=== PATIENT | female | born 2000 ===

== ENCOUNTER 2020-03-11 14:45 | Outpatient (REF) | payer MEDICAID, SELFPAY ==
--- NOTE | 2020-03-11 | PFT_ITS ---
Forced vital capacity is slightly decreased. FEV1 moderately decreased. FOT37-51 and MVV are markedly decreased. Post bronchodilator therapy, no significant changes noted except for slight improvement in MVV. Total lung capacity is normal. Residual volume slightly increased. Diffusion capacity normal. CONCLUSION: Moderately severe obstructive airway disorder. No significant response to bronchodilator therapy. MD RAMU Rosario/VANESSA / [id number]
== END 2020-03-11 14:46 | disposition home or self-care (01) ==
LOC: HO.RESP 14:45
PROVIDERS: PCP Emergency Medicine; Visit Provider Internal Medicine Pulmonary Disease
DX: J45.30 Mild persistent asthma, uncomplicated (principal)
CPT/HCPCS: 94060; 94727; 94729

== ENCOUNTER → 2020-03-24 14:50 | Outpatient (BNVA) | payer MEDICAID, SELFPAY | PROVIDERS: PCP Emergency Medicine; Visit Provider Internal Medicine Pulmonary Disease | DX: J45.40 Moderate persistent asthma, uncomplicated (principal); Z79.899 Other long term (current) drug therapy | CPT/HCPCS: 99213 ==

== ENCOUNTER → 2020-06-18 14:52 | Outpatient (BNVA) | payer MEDICAID, SELFPAY | PROVIDERS: PCP Emergency Medicine; Referring Provider Emergency Medicine; Visit Provider Internal Medicine Pulmonary Disease | DX: J45.50 Severe persistent asthma, uncomplicated (principal); Z91.09 Other allergy status, other than to drugs and biological substances | CPT/HCPCS: 99212 ==

== ENCOUNTER 2020-06-24 10:27 | Outpatient (REF) | payer MEDICAID, SELFPAY ==
[2020-06-24 12:03] LABS: MANUAL DIFF FLAG NO
[2020-06-24 12:14] LABS: Basophils Percent Auto 0.6 % (0-2); Eosinophils Percent Auto 0.6 % (0-4); Hematocrit 36.7 % (37-47); Hemoglobin 11.6 g/dl (12.0-16.0); Imm Gran Abs Auto 0.01 X10*3/uL (0.00-0.03); Imm Gran Pct Auto 0.2 % (0.0-0.4); Lymphocytes Absolute Auto 2.1 X10*3/uL (1.2-4.9); Lymphocytes Percent Auto 41.5 % (20-40); Mean Corpuscular HGB Conc 31.6 g/dl (31.0-35.0); Mean Corpuscular Hemoglobin 27.7 pg (27.0-33.0); Mean Corpuscular Volume 87.6 fL (80-98); Mean Platelet Volume 11.7 fL (9.4-12.3); Monocytes Absolute Auto 0.4 X10*3/uL (0.1-1.2); Monocytes Percent Auto 7.5 % (2-11); Neutrophils Absolute Auto 2.5 X10*3/uL (2.0-8.3); Neutrophils Percent Auto 49.6 % (45-73); Platelet Count 229 X10*3/uL (160-400); Red Blood Count 4.19 X10*6/uL (4.20-5.50); Red Cell Distribution Width 14.2 % (11.0-16.0); White Blood Count 5.1 X10*3/uL (4.8-10.8)
[2020-06-26 03:37] LABS: Immunoglobulin E 25 kU/L (<OR=114)
== END 2020-06-24 10:28 | disposition home or self-care (01) ==
LOC: HO.LAB 10:27
PROVIDERS: PCP Emergency Medicine; Visit Provider Internal Medicine Pulmonary Disease
DX: J45.50 Severe persistent asthma, uncomplicated (principal)
CPT/HCPCS: 36415; 82785; 85025; 86003

== ENCOUNTER → 2020-09-10 12:41 | Outpatient (BNVA) | payer MEDICAID, SELFPAY | PROVIDERS: PCP Emergency Medicine; Visit Provider Internal Medicine Pulmonary Disease | DX: J45.50 Severe persistent asthma, uncomplicated (principal) | CPT/HCPCS: 99212 ==

== ENCOUNTER → 2020-10-21 13:45 | Outpatient (BNVA) | payer MEDICAID, SELFPAY | PROVIDERS: PCP Emergency Medicine; Visit Provider Internal Medicine Pulmonary Disease | DX: J45.50 Severe persistent asthma, uncomplicated (principal); Z91.09 Other allergy status, other than to drugs and biological substances | CPT/HCPCS: 99212 ==

== ENCOUNTER → 2021-02-09 13:57 | Outpatient (BNVA) | payer MEDICAID, SELFPAY | PROVIDERS: PCP Nurse Practitioner; Visit Provider Internal Medicine Pulmonary Disease | DX: J45.50 Severe persistent asthma, uncomplicated (principal); Z91.09 Other allergy status, other than to drugs and biological substances | CPT/HCPCS: 99212 ==

== ENCOUNTER → 2021-10-18 13:19 | Outpatient (BNVA) | payer MEDICAID, SELFPAY | PROVIDERS: PCP Nurse Practitioner; Visit Provider Internal Medicine Pulmonary Disease | DX: J45.50 Severe persistent asthma, uncomplicated (principal) | CPT/HCPCS: 99212 ==

== ENCOUNTER → 2022-06-08 15:21 | Outpatient (BNVA) | payer MEDICAID, SELFPAY | PROVIDERS: PCP Nurse Practitioner; Visit Provider Internal Medicine Pulmonary Disease | DX: J45.50 Severe persistent asthma, uncomplicated (principal); Z79.899 Other long term (current) drug therapy | CPT/HCPCS: 99212 ==

== ENCOUNTER → 2022-10-18 08:37 | Outpatient (BNVA) | payer MEDICAID, SELFPAY | PROVIDERS: PCP Nurse Practitioner; Visit Provider Physician Assistant | DX: K21.9 Gastro-esophageal reflux disease without esophagitis (principal); Z79.899 Other long term (current) drug therapy | CPT/HCPCS: 99202 ==

== ENCOUNTER 2022-12-13 13:08 | Outpatient (AMB) | payer MEDICAID, SELFPAY ==
--- NOTE | 2022-12-13 13:21 | A.OFFVIS_ITS ---
Intake Vital Signs 12/13/22 13:23 Height 5 ft 1 in Weight 94 lb 12.78 oz BMI 17.9 BP 102/88 Pulse 69 Pulse Oximetry (%) 97 Intake Visit Reasons: asthma Intake Note: pt is doing very well on breo and incruse Allergies No Known Allergies [No Known Allergies*] Allergy (Verified 10/18/22 08:46) HPI asthma HPI Details 22-year-old lady, lifetime nonsmoker, followed for underlying severe persistent asthma.? She continues to use Breo, Incruse, and albuterol MDI with good control of her underlying symptoms.? She denies any recent exacerbations.? [facility], LAT[facility] Social History Household Members: Family Alcohol intake: current Alcohol intake frequency: holidays/special occasions only Patient Tobacco Use Status: Never used Tobacco Review of Systems Const Denies daytime sleepiness, Denies excessive sweating, Denies fatigue, Denies fever(s), Denies lethargy, Denies malaise, Denies night sweats, Denies snoring and Denies weight loss Eyes Denies blurry vision and Denies itchy eyes ENT Denies nasal congestion, Denies post nasal drip, Denies sinus pain, Denies sinus pressure and Denies other ( Thrush) Card Denies chest pain, Denies pedal edema, Denies dyspnea, Denies orthopnea and Denies paroxysmal nocturnal dyspnea Resp Denies cough, Denies hemoptysis, Denies excessive phlegm production, Denies dyspnea, Denies snoring and Denies wheezing GI Denies abdominal pain and Denies heartburn Musc Denies myalgias, Denies arthralgias and Denies joint swelling Skin/Breast Denies rash Neuro Denies memory loss and Denies seizure-like activity Psych Denies abnormal sleep pattern, Denies anxiety and Denies memory loss Endo Denies excessive sweating, Denies fatigue and Denies heat intolerance Cain/Lymph Denies easy bruising Aller/Immun Denies itchy eyes, Denies seasonal rhinorrhea and Denies wheezing Physical Exam Vital Signs: Last Vital Signs Pulse 69 12/13/22 13:23 BP 102/88 12/13/22 13:23 Pulse Ox 97 12/13/22 13:23 BMI result Body Mass Index 17.9 Const General: no acute distress and alert Nutritional Appearance: not obese Orientation/consciousness: Other orientation findings ( oriented) HEENT Head: Yes atraumatic Eyes General: appearance normal, both eyes and all related structures Sclerae: sclerae normal EOM: EOMs intact bilaterally Neck Neck: Yes supple Lymphatic: no lymphadenopathy noted Resp Effort & Inspection: normal respiratory effort and no use of accessory muscles Auscultation: clear to auscultation bilaterally Cardio Rate: regular rate Rhythm: regular rhythm Heart sounds: no gallops, no murmurs and no rubs Skin General skin exam: other ( warm) Extrem General: No clubbing, No cyanosis and No edema Assessment & Plan Assessment & Plan (1) Severe persistent asthma: Code(s): J45.50 - Severe persistent asthma, uncomplicated Plan: Patient continues to do well on her current regimen of Breo, Incruse, and albuterol MDI. Continue current regimen. (2) Environmental allergies: Code(s): Z91.09 - Other allergy status, other than to drugs and biological substances Plan: No recent issues with environmental allergies. Coding Level of Care Code Est Pt Level 3 (47315) Diagnoses Severe persistent asthma J45.50 Environmental allergies Z91.09
[2022-12-13 13:23] VITALS: BP 102/88; PULSE 69; O2SAT 97; BMI 17.9
== END 2022-12-13 13:29 | disposition home or self-care (01) ==
PROVIDERS: PCP Nurse Practitioner; Visit Provider Internal Medicine Pulmonary Disease
DX: J45.50 Severe persistent asthma, uncomplicated (principal); Z91.09 Other allergy status, other than to drugs and biological substances
CPT/HCPCS: 99213

== ENCOUNTER → 2022-12-13 13:08 | Outpatient (BNVA) | payer MEDICAID, SELFPAY | PROVIDERS: PCP Nurse Practitioner; Visit Provider Internal Medicine Pulmonary Disease | DX: J45.50 Severe persistent asthma, uncomplicated (principal); Z91.09 Other allergy status, other than to drugs and biological substances | CPT/HCPCS: 99212 ==

== ENCOUNTER 2023-05-02 09:54 | Day surgery (SDC) | payer MEDICAID, SELFPAY ==
--- NOTE | 2023-05-01 10:27 | HO.ANESPROP2 ---
Documented by User: Nayeli Armendariz NP 05/01/23 10:27 HPI - Anesthesia Eval Consult details Narrative: 22yo F for Upper Endoscopy [facility] Active Problems Active Problems: All Active Problems (Updated 10/18/22 @ 09:00 by Barbara Soriano PA-C) Acid reflux (Acute) Environmental allergies (Acute) Severe persistent asthma (Acute) Past Medical History Medical History (Updated 05/02/23 @ 10:35 by Jeanne Trivedi RN) GERD (gastroesophageal reflux disease) Social History Social History Household Members: Family Alcohol intake: current Alcohol intake frequency: holidays/special occasions only Patient Tobacco Use Status: Never used Tobacco Use of substances other than those prescribed or required for medical reasons: No Are you DNR?: No Advance Directives: No Advance Directives Information Provided: Yes Meds Allergies Allergy/AdvReac Type Severity Reaction Status Date / Time No Known Allergies Allergy Verified 10/18/22 08:46 [No Known Allergies*] Assessment and Plan Assessment Anesthesia Assessment: Chart Reviewed Documented by User: Vladislav Heath MD 05/02/23 10:56 [facility] Past Medical History Medical History (Updated 05/02/23 @ 10:35 by Jeanne Trivedi RN) GERD (gastroesophageal reflux disease) Family History Family history of problems with anesthesia: No Surgical History History of Problems with Anesthesia: No Social History Social History Household Members: Family Alcohol intake: current Alcohol intake frequency: holidays/special occasions only Patient Tobacco Use Status: Never used Tobacco Use of substances other than those prescribed or required for medical reasons: No Are you DNR?: No Advance Directives: No Advance Directives Information Provided: Yes Meds Allergies Allergy/AdvReac Type Severity Reaction Status Date / Time No Known Allergies Allergy Verified 05/17/23 08:46 [No Known Allergies*] Exam Airway Mallampati Class: I TM Dist: >3cm Neck ROM: Full Assessment and Plan Assessment Anesthesia Assessment: Anesthesia Plan Discussed Final Anesthetic Review Family History of Problems with Anesthesia: No History of Problems with Anesthesia: No NPO: Yes ASA Class: II Final Preanesthetic Review: No Changes in Pt Med Stat, Meds/Allgs Chart Reviewed, Consent Obtained/Reviewed and Anes Risks/Benef Reviewed Patient Risk: Low Procedure Risk: Low Anesthetic Plan Anesthetic Plan: MAC: Disposition: Standard PACU
[2023-05-02 10:30] VITALS: BMI 17.8
[2023-05-02 10:38] LABS: UPreg QC Valid YES; Urine Pregnancy NEGATIVE (NEGATIVE)
[2023-05-02 11:11] VITALS: BP 126/81; PULSE 71; RESP 16; TEMP 36.6; O2SAT 100
--- NOTE | 2023-05-02 11:26 | MHC.SHP ---
Pre-Procedural Eval Section A Date of Service: 05/02/23 Section B Chief Complaint: Gastro-esophageal reflux disease without esophagit Relevant Family History (Specify if Yes): No Relevant Social History: None Present Medications: see Short Stay Collaborative assessment Medical History: Significant History (asthma, GERD) History of Previous Operations: No relevant previous surgery Allergies: Allergies Allergy/AdvReac Type Severity Reaction Status Date / Time No Known Allergies Allergy Verified 10/18/22 08:46 [No Known Allergies*] Review of Systems Sugical H&P ROS: Negative: Constitution, Cardiovascular, Respiratory, Neurological, Psychiatric, Hem-Onc, Allergic/Immunologic, Gastrointestinal, Genitourinary, Musculoskeletal, Integumentary, Endocrine and Eyes/Ears/Nose/Throat Exam Surgical H&P Exam: Normal: HEENT, Normal: Heart, Normal: Lungs, Normal: Extremities, Normal: Abdomen, Normal: Skin and Normal: Neurological Plan Diagnosis/Plan: Unchanged I have reviewed the history and physical and performed a pertinent physical examination on my patient. No changes have occurred unless specified. Time Spent With Patient Time: Total time managing care of this patient today ____ minutes.
--- NOTE | 2023-05-02 11:27 | W.PM.OPN ---
Operative Note Operative Note Date of Service: 05/02/23 Narrative: Procedure Description: EGD Indication: GERD Anesthesia: MAC FLEXIBLE TRANSORAL UPPER GASTROINTESTINAL ENDOSCOPY UPPER ENDOSCOPY Consent: Indications for the procedure and potential complications of bleeding, perforation, reaction to medications and missed diagnosis were discussed with the patient and informed consent was obtained. Instrument: Olympus GIF H 190 J mid size upper endoscope Monitoring: Vital signs and clinical assessment, continuous EKG monitoring, Pulse oximetry, Carbon Dioxide monitoring and blood pressure monitoring were done throughout the procedure. Procedure: The patient was placed in the left lateral decubitis position and pre-procedure medications were administered and a bite block was placed. The endoscope was inserted into the mouth and advanced under direct vision to the third part of duodenum. A careful inspection was made as the upper endoscope was withdrawn including a retroflexed examination of the proximal stomach; Findings and interventions are described below. Findings: Larynx:mild erythema larynx Esophagus: GE junction at 35 cm, diaphragm hiatus at 35 cm, lax LES, random esophageal bx taken Stomach:Normal mucosa. Biopsies were obtained to r/o h pylori. Grade 2 flap valve on retroflexed examination of the cardia. Duodenum: Normal bulb and descending duodenum, Intervention: Biopsies as noted above Impression/Findings: lax LES mild laryngitis PLAN: cont with PPi as doing if h pylori pos then treat
[2023-05-02 12:04] VITALS: BP 129/76; PULSE 93; RESP 16; TEMP 36.8; O2SAT 100
[2023-05-02 12:21] VITALS: BP 130/81; PULSE 91; RESP 17; TEMP 36.7; O2SAT 100
== END 2023-05-02 13:20 | disposition home or self-care (01) ==
PROVIDERS: Nurse Practitioner; Visit Provider Internal Medicine Gastroenterology
PROC: 0DJ08ZZ Inspection of Upper Intestinal Tract, Via Natural or Artificial Opening Endoscopic (ICD-10-PCS; CPT 43235; principal; 2023-05-02 11:40)
DX: K22.4 Dyskinesia of esophagus (principal); J04.0 Acute laryngitis; K21.9 Gastro-esophageal reflux disease without esophagitis; Z79.899 Other long term (current) drug therapy
CPT/HCPCS: 43239; 81025; 88305; 88342; J2704

== ENCOUNTER → 2023-05-02 09:54 | Outpatient (BNV) | payer MEDICAID, SELFPAY | PROVIDERS: Visit Provider Internal Medicine Gastroenterology | DX: K21.9 Gastro-esophageal reflux disease without esophagitis (principal); J04.0 Acute laryngitis | CPT/HCPCS: 43239 ==

== ENCOUNTER 2023-06-06 12:50 | Outpatient (AMB) | payer MEDICAID, SELFPAY ==
--- NOTE | 2023-06-06 13:32 | MHC.OFFVIS ---
Intake Vital Signs 06/06/23 13:33 Height 5 ft 1 in Weight 93 lb BMI 17.6 BP 119/54 L Blood Pressure Location Lt brachial Position Sitting Pulse 73 Intake Visit Reasons: s/p egd Intake Note: Follow up for EGD results. Patient denies any GI issues. Liquor Commissioner Required: No Accompanied by: Self / Same As Patient Allergies No Known Allergies [No Known Allergies*] Allergy (Verified 06/06/23 13:32) Medication List - Last Reconciled 06/06/23 by Barbara Soriano PA-C albuterol sulfate 90 mcg/actuation 2 puffs inhalation Q4-6H PRN 30 days fluticasone furoate-vilanterol 200-25 mcg/dose (Breo Ellipta) 1 ea inhalation DAILY omeprazole 40 mg (2 x 20 mg) PO DAILY umeclidinium 62.5 mcg/actuation (Incruse Ellipta) 1 inh inhalation DAILY HPI HPI Comments History of Present Illness Details A 22 y/o female f/u after EGD for reflux-she says she tolerated procedure well she is taking omeprazole daily with good response She has a good appetite Reviewed procedure report, pathology as well as recommendations Opportunity for questions answered to her satisfaction No other GI or general complaints-asthma has been well controlled No nausea, vomiting, hematemesis, hematochezia fever chills PFSH Medical History GERD (gastroesophageal reflux disease) Surgical History History of esophagogastroduodenoscopy (EGD) Social History Household Members: Family Alcohol intake: current Alcohol intake frequency: holidays/special occasions only Patient Tobacco Use Status: Never used Tobacco Review of Systems Const Details: All systems reviewed and are negative Physical Exam Vital Signs: Last Vital Signs Pulse 73 06/06/23 13:33 BP 119/54 L 06/06/23 13:33 BMI result Body Mass Index 17.6 Const General: cooperative, healthy appearing, comfortable and no acute distress Limitations: no limitations Resp Effort & Inspection: normal respiratory effort and able to speak in complete sentences Skin General skin exam: no rashes or lesions noted Extrem General: Yes full ROM Psych Appearance: grossly normal and well kempt Mental Status: mental status grossly normal Speech and movement: Normal speech and movement present and Clear speech present Affect: normal affect Attitude: cooperative Thought process: Normal thought process present Thought content: Normal thought content present Insight: Good insight present (Psych) Judgement: Good judgement present (Psych) Results Reviewed Results Reviewed: Findings: Larynx:mild erythema larynx Esophagus: GE junction at 35 cm, diaphragm hiatus at 35 cm, lax LES, random esophageal bx taken Stomach:Normal mucosa. Biopsies were obtained to r/o h pylori. Grade 2 flap valve on retroflexed examination of the cardia. Duodenum: Normal bulb and descending duodenum, Intervention: Biopsies as noted above Impression/Findings: lax LES mild laryngitis PLAN: cont with PPi as doing if h pylori pos then treat Name: Leslye Oglesby Age/Sex: 22/F Attending: Karen Bustos MD : 2000 Submitted by: Karen Bustos MD Copies to: [facility] MR #: [id number] Status: [facility] Collected: 05/02/23 Location: [facility] Received: 05/02/23 Diagnosis A. Stomach, biopsy: Oxyntic mucosa within normal limits; no Helicobacter organisms seen. B. Esophagus, random, biopsy: Squamous epithelium within normal limits; no inflammation seen. Clinical History Pre-Op Dx: Screening Post-Op Dx: LES mild erythema larynx Microscopic Description A, B. Microscopic sections reviewed. Immunostain for H. pylori is non-reactive (A). Material Received A. Stomach B. Random esophagus Gross Description Received in 2 parts. Part A: Received in formalin labeled ?stomach? are 2 ogden irregular tissue fragments each measuring 0.3 cm, submitted in toto in a cassette labeled A. Part B: Received in formalin labeled ?random esophagus? are 3 pale, dunaway-white irregular tissue fragments ranging from 0.15-0.25 cm, submitted in toto a cassette labeled B. CEDS Special studies ordered and performed: immunostain for H. pylori on A Copies To Karen Bustos MD [address] [place] [address] [place] [place], [place] [id number] [facility] [address] [place], [place] [id number] Patient: Leslye Oglesby Age/Sex: 22/F MR#: [id number] Page 1 of 2 Assessment & Plan Assessment & Plan (1) Acid reflux: Comment: Well controlled with PPI Asthma well controlled at this time Code(s): K21.9 - Gastro-esophageal reflux disease without esophagitis Plan: Continue PPI Plan Continue PPI See back in couple months for for progress If all well may follow-up with PCP Medications: Refilled omeprazole 40 mg (2 x 20 mg) PO DAILY 60 caps 5RF Patient Instructions: A very pleasant 22-year-old female acid reflux asthma, follows up after recent EGD-she tolerated well She will continue PPI prescribed. Reviewed reflux precautions she will continue to avoid culprits We will see her back in a few months for further assessment a follows well she may follow back with her PCP. Appreciate the opportunity assist in care this very pleasant young woman Coding Level of Care Code Est Pt Level 3 (46227) Diagnoses Acid reflux K21.9 Time Spent (min) 25
[2023-06-06 13:33] VITALS: BP 119/54; PULSE 73; BMI 17.6
== END 2023-06-06 14:34 | disposition home or self-care (01) ==
PROVIDERS: PCP Nurse Practitioner; Visit Provider Physician Assistant
DX: K21.9 Gastro-esophageal reflux disease without esophagitis (principal)
CPT/HCPCS: 99213

== ENCOUNTER → 2023-06-06 12:50 | Outpatient (BNVA) | payer MEDICAID, SELFPAY | PROVIDERS: PCP Nurse Practitioner; Visit Provider Physician Assistant | DX: K21.9 Gastro-esophageal reflux disease without esophagitis (principal) | CPT/HCPCS: 99212 ==

== ENCOUNTER 2023-08-30 14:26 | Outpatient (AMB) | payer MEDICAID, SELFPAY ==
--- NOTE | 2023-08-30 14:30 | MHC.OFFVIS ---
Intake Vital Signs 08/30/23 14:34 Height 5 ft 1 in Weight 90 lb 6.232 oz BMI 17.1 BP 106/63 Blood Pressure Location Lt brachial Position Sitting Pulse 77 Intake Visit Reasons: 8 week f/u Intake Note: Leslye presents in the office as a 8 week follow up. CC: She states that she is having pains in her chest and she is not sure if it is asthma related. 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 Allergies No Known Allergies [No Known Allergies*] Allergy (Verified 08/30/23 14:34) Medication List - Last Reconciled 08/30/23 by Barbara Soriano PA-C albuterol sulfate 90 mcg/actuation 2 puffs inhalation Q4-6H PRN 30 days fluticasone furoate-vilanterol 200-25 mcg/dose (Breo Ellipta) 1 ea inhalation DAILY omeprazole 40 mg (2 x 20 mg) PO DAILY umeclidinium 62.5 mcg/actuation (Incruse Ellipta) 1 inh inhalation DAILY HPI HPI Comments History of Present Illness Details A 22 y/o female with GERD- f/u weight loss- Acid very well controlled- She skips meals-she is losing her job- where she typically eats -she does not eat much. Asthma - well controlled- follows with Dr. Chand She stays up late- sleeps late- She lives with her 20 y/o brother- her mom - father is estranged- No N/V/ D- SOB PFSH Medical History GERD (gastroesophageal reflux disease) Surgical History History of esophagogastroduodenoscopy (EGD) Social History Household Members: Family Alcohol intake: current Alcohol intake frequency: holidays/special occasions only Patient Tobacco Use Status: Never used Tobacco Review of Systems Const All systems reviewed & are unremarkable except as noted in HPI and below Card Denies chest pain Psych Reports anxiety Physical Exam Vital Signs: Last Vital Signs Pulse 77 08/30/23 14:34 BP 106/63 08/30/23 14:34 BMI result Body Mass Index 17.1 Const General: cooperative, comfortable and no acute distress Nutritional Appearance: thin Orientation/consciousness: patient oriented x3 Limitations: no limitations Eyes Sclerae: sclerae normal Resp Effort & Inspection: normal respiratory effort and able to speak in complete sentences Auscultation: clear to auscultation bilaterally Cardio Rate: regular rate Rhythm: regular rhythm Heart sounds: S1 normal heart sound present and S2 normal heart sound present Neuro General: patient oriented x3 Psych Appearance: grossly normal and well kempt Mental Status: mental status grossly normal Speech and movement: Normal speech and movement present and Clear speech present Affect: normal affect Attitude: cooperative Thought process: Normal thought process present Thought content: Normal thought content present Insight: Good insight present (Psych) Judgement: Good judgement present (Psych) Results Reviewed Results Reviewed: me: Leslye Oglesby Age/Sex: 22/F Attending: Karen Bustos MD : 2000 Submitted by: Karen Bustos MD Copies to: [facility] MR #: [id number] Status: [facility] Collected: 05/02/23 Location: [facility] Received: 05/02/23 Diagnosis A. Stomach, biopsy: Oxyntic mucosa within normal limits; no Helicobacter organisms seen. B. Esophagus, random, biopsy: Squamous epithelium within normal limits; no inflammation seen. Clinical History Pre-Op Dx: Screening Post-Op Dx: LES mild erythema larynx Microscopic Description A, B. Microscopic sections reviewed. Immunostain for H. pylori is non-reactive (A). Material Received A. Stomach B. Random esophagus lax LES mild laryngitis PLAN: cont with PPi as doing if h pylori pos then treat Assessment & Plan Assessment & Plan (1) Acid reflux: Comment: Well controlled with PPI Asthma well controlled at this time Code(s): K21.9 - Gastro-esophageal reflux disease without esophagitis (2) Weight loss: Comment: Concern re financial-social Code(s): R63.4 - Abnormal weight loss Plan: Of will bring her back for follow-up in weight monitoring Plan Lab Monitor weight Orders: Orders Comprehensive Met. Panel 08/30/23 K58.9 - Irritable bowel syndrome without diarrhea Vitamin B12 and Folate 08/30/23 D64.9 - Anemia, unspecified Transglutaminase IgA 08/30/23 R19.7 - Diarrhea, unspecified Thyroid Stimulating Hormone 08/30/23 R19.8 - Other specified symptoms and signs involving the digestive system and abdomen Vitamin D 25-OH (D2 and D3) 08/30/23 K21.9 - Gastro-esophageal reflux disease without esophagitis, R63.4 - Abnormal weight loss Hemoglobin A1c 08/30/23 K21.9 - Gastro-esophageal reflux disease without esophagitis, R63.4 - Abnormal weight loss Complete Blood Count Auto Diff 08/30/23 K21.9 - Gastro-esophageal reflux disease without esophagitis, R63.4 - Abnormal weight loss Endomysial IgA rflx Titer 08/30/23 K21.9 - Gastro-esophageal reflux disease without esophagitis, R63.4 - Abnormal weight loss Patient Instructions: Very pleasant then 22-year-old female-with weight loss, well-controlled acid reflux Weight loss likely due to lack of calories-will continue to monitor will have labs as well for evaluation Discussion in regard to social/financial she is sure all is okay Will continue to monitor as well Encouraged to call with any questions or concerns Coding Level of Care Code Est Pt Level 3 (11584) Diagnoses Acid reflux K21.9 Weight loss R63.4 Time Spent (min) 30
[2023-08-30 14:34] VITALS: BP 106/63; PULSE 77; BMI 17.1
== END 2023-08-30 14:54 | disposition home or self-care (01) ==
PROVIDERS: PCP Nurse Practitioner; Visit Provider Physician Assistant
DX: K21.9 Gastro-esophageal reflux disease without esophagitis (principal); R63.4 Abnormal weight loss
CPT/HCPCS: 99213

== ENCOUNTER → 2023-08-30 14:26 | Outpatient (BNVA) | payer MEDICAID, SELFPAY | PROVIDERS: PCP Nurse Practitioner; Visit Provider Physician Assistant | DX: K21.9 Gastro-esophageal reflux disease without esophagitis (principal); R63.4 Abnormal weight loss | CPT/HCPCS: 99212 ==

== ENCOUNTER 2023-12-07 16:27 | Outpatient (REF) | payer MEDICAID, SELFPAY ==
[2023-12-07 16:40] LABS: MANUAL DIFF FLAG NO
[2023-12-07 17:53] LABS: Basophils Percent Auto 0.6 % (0-2); Eosinophils Percent Auto 0.2 % (0-4); Hematocrit 32.5 % (37.0-47.0); Hemoglobin 9.8 g/dl (12.0-16.0); Imm Gran Abs Auto 0.01 X10*3/uL (0.00-0.03); Imm Gran Pct Auto 0.2 % (0.0-0.4); Lymphocytes Absolute Auto 1.7 X10*3/uL (1.2-4.9); Mean Corpuscular HGB Conc 30.2 g/dl (31.0-35.0); Mean Corpuscular Volume 76.3 fL (80.0-98.0); Mean Platelet Volume 11.7 fL (9.4-12.3); Monocytes Absolute Auto 0.5 X10*3/uL (0.1-1.2); Neutrophils Absolute Auto 4.2 x10*3/uL (2.0-8.3); Platelet Count 316 X10*3/uL (160-400); Red Blood Count 4.26 X10*6/uL (4.20-5.50); Red Cell Distribution Width 17.6 % (11.0-16.0); White Blood Count 6.4 X10*3/uL (4.8-10.8)
[2023-12-07 18:18] LABS: Alanine Aminotransferase 9 U/L (0-31); Albumin Level 4.8 g/dL (3.5-5.0); Alkaline Phosphatase 99 U/L (39-117); Anion Gap 13 (12-20); Aspartate Amino Transferase 20 U/L (5-31); Bilirubin Total 0.4 mg/dL (0.0-1.0); Blood Urea Nitrogen 9 mg/dL (9-16); Calcium 9.3 mg/dL (8.4-10.2); Carbon Dioxide 25 mmol/L (22-29); Chloride 106 mmol/L (96-108); Estimated Glomerular Filt Rate > 60; Glucose Random 92 mg/dL (60-115); Potassium 3.7 mmol/L (3.3-5.1); Sodium 140 mmol/L (135-145); Total Protein 7.8 g/dL (6.5-8.0)
[2023-12-07 18:34] LABS: Thyroid Stimulating Hormone 0.43 uIU/mL (0.32-4.0)
[2023-12-07 18:42] LABS: Folate 8.9 ng/mL (> or = 4.0); Vitamin B12 423 pg/mL (200-900)
[2023-12-08 03:05] LABS: Estimated Average Glucose 97 mg/dL
[2023-12-10 23:08] LABS: Transglutaminase IgA <1.0 U/mL
[2023-12-11 12:39] LABS: Vitamin D 25-OH, D2 <4 ng/mL; Vitamin D 25-OH, D3 11 ng/mL; Vitamin D 25-OH, Total 11 ng/mL (30-100)
[2023-12-18 12:38] LABS: Endomysial IgA Antibody Negative (Negative)
== END 2023-12-07 16:28 | disposition home or self-care (01) ==
LOC: HO.LAB 16:27
PROVIDERS: Visit Provider Physician Assistant
DX: K21.9 Gastro-esophageal reflux disease without esophagitis (principal); R63.4 Abnormal weight loss; D64.9 Anemia, unspecified; R19.8 Other specified symptoms and signs involving the digestive system and abdomen; K58.0 Irritable bowel syndrome with diarrhea
CPT/HCPCS: 36415; 80053; 82306; 82607; 82746; 83036; 84443; 85025; 86231; 86364

== ENCOUNTER 2024-04-30 10:54 | Outpatient (AMB) | payer MEDICAID, SELFPAY ==
[2024-04-30 10:57] VITALS: BP 119/62; PULSE 99; O2SAT 100; BMI 18.7
--- NOTE | 2024-04-30 10:57 | MHC.OFFVIS ---
Vital Signs 04/30/24 10:57 Height 5 ft 1 in Weight 99 lb BMI 18.7 BP 119/62 Blood Pressure Location Rt brachial Position Sitting Pulse 99 Pulse Source Doppler Pulse Oximetry (%) 100 Oxygen Delivery Method Room Air Intake Visit Reasons: Asthma Allergies No Known Allergies [No Known Allergies*] Allergy (Verified 04/30/24 10:59) HPI HPI Asthma: Details: 23-year-old lady, lifetime nonsmoker, followed for underlying severe persistent asthma.? She continues to use Breo, Incruse, and albuterol MDI with good control of her underlying symptoms.? She denies any recent exacerbations.? [facility] Medical History GERD (gastroesophageal reflux disease) Surgical History History of esophagogastroduodenoscopy (EGD) Social History Household Members: Family Alcohol intake: current Alcohol intake frequency: holidays/special occasions only Patient Tobacco Use Status: Never used Tobacco Review of Systems Const Denies daytime sleepiness, Denies excessive sweating, Denies fatigue, Denies fever(s), Denies lethargy, Denies malaise, Denies night sweats, Denies snoring and Denies weight loss Eyes Denies blurry vision and Denies itchy eyes ENT Denies nasal congestion, Denies post nasal drip, Denies sinus pain, Denies sinus pressure and Denies other ( Thrush) Card Denies chest pain, Denies pedal edema, Denies dyspnea, Denies orthopnea and Denies paroxysmal nocturnal dyspnea Resp Denies cough, Denies hemoptysis, Denies excessive phlegm production, Denies dyspnea, Denies snoring and Denies wheezing GI Denies abdominal pain and Denies heartburn Musc Denies myalgias, Denies arthralgias and Denies joint swelling Skin/Breast Denies rash Neuro Denies memory loss and Denies seizure-like activity Psych Denies abnormal sleep pattern, Denies anxiety and Denies memory loss Endo Denies excessive sweating, Denies fatigue and Denies heat intolerance Cain/Lymph Denies easy bruising Aller/Immun Denies itchy eyes, Denies seasonal rhinorrhea and Denies wheezing Physical Exam Vital Signs: Last Vital Signs Pulse 99 04/30/24 10:57 BP 119/62 04/30/24 10:57 Pulse Ox 100 04/30/24 10:57 Oxygen Delivery Method Room Air 04/30/24 10:57 BMI result Body Mass Index 18.7 Const General: no acute distress and alert Nutritional Appearance: not obese Orientation/consciousness: Other orientation findings ( oriented) HEENT Head: Yes atraumatic Eyes General: appearance normal, both eyes and all related structures Sclerae: sclerae normal EOM: EOMs intact bilaterally Neck Neck: Yes supple Lymphatic: no lymphadenopathy noted Resp Effort & Inspection: normal respiratory effort and no use of accessory muscles Auscultation: clear to auscultation bilaterally Cardio Rate: regular rate Rhythm: regular rhythm Heart sounds: no gallops, no murmurs and no rubs Skin General skin exam: other ( warm) Extrem General: No clubbing, No cyanosis and No edema Assessment & Plan Assessment & Plan (1) Severe persistent asthma: Code(s): J45.50 - Severe persistent asthma, uncomplicated Category: Medical Plan: Well controlled on current regimen of Breo, Incruse, and albuterol MDI. Continue current regimen. Coding Level of Care Code Est Pt Level 3 (99071) Diagnoses Severe persistent asthma J45.50
== END 2024-04-30 11:06 | disposition home or self-care (01) ==
PROVIDERS: PCP Registered Nurse; Visit Provider Internal Medicine Pulmonary Disease
DX: J45.50 Severe persistent asthma, uncomplicated (principal)
CPT/HCPCS: 99213

== ENCOUNTER → 2024-04-30 10:54 | Outpatient (BNVA) | payer MEDICAID, SELFPAY | PROVIDERS: PCP Registered Nurse; Visit Provider Internal Medicine Pulmonary Disease | DX: J45.50 Severe persistent asthma, uncomplicated (principal) | CPT/HCPCS: 99212 ==

== ENCOUNTER 2024-07-28 18:22 | Outpatient (REF) | payer MEDICAID, SELFPAY ==
--- OUTSIDE RECORDS SUMMARY | 2024-07-28 18:52 | XMS_ITS | Encounter Summary ---
Author Organization [employer] Address [address] [facility] 7t [place] [address] Care Team Providers Care Fire Safety Inspector Name Role Phone Codie Barrow [facility] Primary Care Provider [phone] Encounter Details Date Type Department Care Team (Latest Contact Info) Description 07/28/2024 Travel Social History Tobacco Use Types Packs/Day Years Used Date Smoking Tobacco: Never Smokeless Tobacco: Never Alcohol Use Standard Drinks/Week Comments Never 0 (1 standard drink = 0.6 oz pur e alcohol) Depression Answer Date Recorded Patient Health Questionnaire-9 Score 0 04/02/2024 Patient Health Questionnaire-9 Score 0 04/02/2024 Last PHQ-9: Questionnaire Data Not on file 1 Housing Stability Answer Date Recorded What is your housing situation today? I have jewell payton 04/02/[address] you li ve. Do you have problems with any of the following? None of the above 04/02/2024 Food Insecurity Answer Date Recorded Within the past 12 months, y ou worried that your food would run out before you got money to buy more: Never True 04/02/2024 Within the past 12 months,th e food you bought just didn't last and you didn't have enough money to get more: Never True Transportation Answer Date Recorded In the past 12 months, has l ack of transportation kept you from medical appts, meetings, work or from getting things needed for daily living? No 04/02/2024 Utilities Answer Date Recorded In the past 12 months, has t he electric, gas, oil or water company threatened to shut off services in your home? No 04/02/2024 Depression Answer Date Recorded Patient Health Questionnaire-2 Score 0 04/02/2024 Internet Access Answer Date Recorded Internet Access Q1 Yes 04/02/2024 Internet Access Q2 Not on file 04/02/2024 Comments No Sex and Gender Information Value Date Recorded Sex Assigned at Female 04/03/2022 10:21 AM EDT Legal Sex Female 10:21 AM EDT Gender Identity Choose not to disclose 10:21 AM EDT Sexual Orientation Choose not to disclose 2021 10:21 AM EDT documented as of this encounter Plan of Treatment Upcoming Encounters Date Type Department Care Team (Late st Contact Info) Description 08/11/2024 3:15 PM EDT Procedure Visit [facility]INE [address] [place] [address] Codie Barrow FNP [address] [place] [address] documented as of this encounter Visit Diagnoses Not on filedocumented in this encounter Additional Health Concerns Assessment Noted Time PHQ-9 Depression Total Score: 0 04/02/20 24 10:40 AM EDT documented as of this encounter Care Teams Fire Safety Inspector Relationship Specialty Start Date End Date Codie Barrow FNP [address] [place] [address] PCP - General Family Medicine 01/24/22 documented as of this encounter
--- OUTSIDE RECORDS SUMMARY | 2024-07-28 18:52 | XMS_ITS | Encounter Summary ---
Author Organization [employer] Address [address] [facility] 7t [place] [address] Care Team Providers Care Comedian Name Role Phone Codie Barrow [facility] Primary Care Provider [phone] Reason for Visit * Reason Onset Date Comments Nurse Triage 07/23/2024 Encounter Details Date Type Department Care Team ([facility] st Contact Info) Description 07/23/2024 Telephone [facility] [address] [place], [place] [phone] Codie Barrow [facility] [address] [place] [address] Nurse Triage Social History Tobacco Use Types Packs/Day Years [...] t he electric, gas, oil or water [employer] threatened to shut off services in your home? No 04/02/2024 Depression Answer Date Recorded Patient Health Questionnaire-2 Score 0 04/02/2024 Internet Access Answer Date Recorded Internet Access Q1 Yes 04/02/2024 Internet Access Q2 Not on file 04/02/2024 Comments Unknown Sex and Gender Information Value Date Recorded Sex Assigned at Female 04/03/2022 10:21 AM EDT Legal Sex Female 10:21 AM EDT Gender Identity Choose not to disclose 10:21 AM EDT Sexual Orientation Choose not to disclose 2021 10:21 AM EDT documented as of this encounter Miscellaneous Notes * Telephone Encounter - Mariya Lawton RN - 07/23/2024 4:16 PM EST called pt to triage, spoke to pt. pt states since last January, has been having intermittent spotting between periods. pt states stopped for a month or two and then started again. pt denies heavy bleeding, heavy cramping, or other associated symptoms. given appt Sunday with PCP at 11:30 for exam. advised home care: rest, fluids, monitor, and call back as needed. pt understands and agrees with plan. insurance verified. Protocol Used: Vaginal Bleeding - Abnormal (Adult) Care Advice Discussed: * Reassurance and Education - Normal Menses * Reassurance and Education - Short or Long Menstrual Cycles * Test, When in Doubt * Iron and Anemia * Reasons To Call Back - Severe abdomen pain or lightheadedness occurs - You become worse * Telephone Encounter - Raymond Lemons - 07/23/2024 4:10 PM EST Tc from pt returning call to message prior. Please return call to pt [phone] * Telephone Encounter - Raymond Lemons - 07/23/2024 3:24 PM EST Symptom: Menstrual Periods Absent or Missed Outcome: Schedule an appointment to be seen within 24 hours Reason: This is the only possible outcome for this symptom The caller accepted this outcome. documented in this encounter Plan of Treatment Upcoming Encounters Date Type Department Care Team (Late st Contact Info) Description 08/11/2024 3:15 PM EDT Procedure Visit [facility] [address] [place] [address] Codie Barrow FNP [address] [place] [address] documented as of this encounter Visit Diagnoses Not on filedocumented in this encounter Additional Health Concerns Assessment Noted Time PHQ-9 Depression Total Score: 0 04/02/20 24 10:40 AM EDT documented as of this encounter Care Teams Comedian Relationship Specialty Start Date End Date Codie Barrow FNP [address] [place] [id number] PCP - General Family Medicine 01/24/22 documented as of this encounter
--- OUTSIDE RECORDS SUMMARY | 2024-07-28 18:52 | XMS_ITS | Encounter Summary ---
Author Organization [employer] Address 75 [facility] 7t [place] [address] Care Team Providers Care Dough Catcher Name Role Phone Codie Barrow [facility] Primary Care Provider [phone] Reason for Visit * Reason Comments Vaginal Bleeding Encounter Details Date Type Department Care Team ([facility] st Contact Info) Description 07/28/2024 11:30 AM EST Office Visit [facility] [address] [place], [place] [phone] Codie Barrow [facility] [address] [place], [place] [phone] Abnormal uterine bleeding (Primary Dx) Social History Tobacco Use Types Packs/Day Years Used Date Smoking Tobacco: Never Smokeless Tobacco: Never Tobacco Cessation:Counseling Given: Not Answered Alcohol Use Standard Drinks/Week Comments Never 0 [...] AM EDT documented as of this encounter Last Filed Vital Signs Vital Sign Reading Time Taken Comments Blood Pressure 120/82 07/28/2024 11:38 AM EST Pulse 80 07/28/2024 11:38 AM EST Temperature 36.4 ??C (97.5 ??F) 07/28/2024 11:[address] Respiratory Rate 18 07/28/2024 11:38 AM EST Oxygen Saturation - - Inhaled Oxygen Concentration - - Weight 43.4 kg (95 lb 9.6 oz) 07/28/2024 11:38 A M EST Height 154.9 cm (5' 1 ) 07/28/2024 11:38 AM EST Body Mass Index 18.06 07/28/2024 11:38 AM EST documented in this encounter Plan of Treatment Upcoming Encounters Date Type Department Care Team (Late st Contact Info) Description 08/11/2024 3:15 PM EDT Procedure Visit [facility] [address] [place] [address] [facility] [address] [place] [address] Scheduled Orders Name Type Priority Associated Diagnoses Orde r Schedule Chlamydia/N. Gonorrhoeae RNA, TMA, Urogenitial Microbiology Routine Abnormal uterine bleeding Ordered: 07/28/2024 Bacterial Vaginosis Panel Microbiology Routine Abnormal uterine bleeding Ordered: 07/28/2024 CBC auto differential Lab Routine Abnormal uterine bleeding Expected: 07/28/2024 (Approximate), Expires: 07/28/2025 Ferritin Lab Routine Abnormal uterine bleeding Expected: 07/28/2024 (Approximate), Expires: 07/28/2025 documented as of this encounter Visit Diagnoses Diagnosis Abnormal uterine bleeding- Primary Unspecified disorder of menstruation and other abnormal bleeding from female genital tract documented in this encounter Additional Health Concerns Assessment Noted Time PHQ-9 Depression Total Score: 0 04/02/20 24 10:40 AM EDT documented as of this encounter Care Teams Dough Catcher Relationship Specialty Start Date End Date Codie Barrow FNP [address] [place] [id number] PCP - General Family Medicine 01/24/22 documented as of this encounter
--- OUTSIDE RECORDS SUMMARY | 2024-07-28 18:52 | XMS_ITS | Clinical Summary ---
Author Organization [email or web address] Address [address] [facility] 7t [place] [address] Care Team Providers Care Cathode Ray Tube Salvage Processor Name Role Phone Codie Barrow [facility] Primary Care Provider [phone] Allergies No known active allergies Medications Fluticasone Furoate-Vilante rol (Breo Ellipta) 200-25 MCG/ACT aerosol powder Inhale. Active Umeclidinium [place] (Incruse Ellipta) 62.5 MCG/ACT aerosol powder Inhale. Active omeprazole OTC (PriLOSEC OTC) 20 MG EC tablet Take 20 mg by mouth before breakfast. Do not crush, chew, or split. Active ergocalciferol (Vitamin D2) 1.25 MG (62785 UT) capsuleIndicati ons:Vitamin D deficiency Take 1 capsule (1.25 mg) by mouth 1 (one) time per week. For 8 weeks 8 capsule 04/02/2024 Active Active Problems Problem Noted Date Diagnosed Date Gastroesophageal reflux disease 04/02/2024 Mixed anxiety and depressive disorder 08/19/2021 Asthma 06/09/2021 Encounters Date Type Department Care Team Description 07/28/2024 11:30 AM EST Office Visit [facility]INE [address] [place] [address] Codie Barrow FNP Abnormal uterine bleeding (Primary Dx) 07/28/2024 Travel 07/23/2024 Telephone [facility] [address] [place] [address] Codie Barrow FNP Nurse Triage from Last 3 Months Family History Medical History Relation Name Comments Colon cancer Maternal Grandmother Bipolar disorder Mother Diabetes Mother Hyperlipidemia Mother Hypertension Mother Kidney disease Mother Osteoarthritis Mother Relation Name Status Comments Maternal Grandmother Mother Social History Tobacco Use Types Packs/Day Years [...] not to disclose 2021 10:21 AM EDT Last Filed Vital Signs Vital Sign Reading Time Taken Comments Blood Pressure 120/82 07/28/2024 11:38 AM EST Pulse 80 07/28/2024 11:38 AM EST Temperature 36.4 ??C (97.5 ??F) 07/28/2024 11:[address] Respiratory Rate 18 07/28/2024 11:38 AM EST Oxygen Saturation 99% 04/02/2024 10:32 AM EDT Inhaled Oxygen Concentration - - Weight 43.4 kg (95 lb 9.6 oz) 07/28/2024 11:38 A M EST Height 154.9 cm (5' 1 ) 07/28/2024 11:38 AM EST Body Mass Index 18.06 07/28/2024 11:38 AM EST Plan of Treatment Upcoming Encounters Date Type Department Care Team (Late st Contact Info) Description 08/11/2024 3:15 PM EDT Procedure Visit [facility] [address] [place], [place] [phone] [place], [place], [facility] [address] [place] [address] Health Maintenance Due Date Last Done Comments HIV Screening 1998 Alcohol/Substance Use Screening 2010 Family Planning (PISQ) 2013 Hepatitis A Vaccines (2 of 2 - 2-dose series) 03/31/2014 09/29/2013 Hepatitis C Screening 2016 Pneumococcal Vaccine: Pediatrics (0 to 5 Years) and At-Risk Patients (6 to 49) Years) (1 of 2 - PCV) 2017 08/01/2000, 02/03/2000, 08/15/1999, Additional history exists Pap Smear 10/27/2019 COVID-19 Vaccine ( season) 2024 01/19/2022, 12/29/2021 Influenza Vaccine (#1) 2024 8, 02/16/2014, 02/17/2013, Additional history exists Depression Screening 04/02/2025 04/02/2024, 04/02/20 24 SDOH Screening 04/02/2025 04/02/2024 Tobacco Screening 07/28/2025 07/28/2024 DTaP/Tdap/Td Vaccines (8 - Td or Tdap) 06/09/2031 06/09/2021, 11/25/2009, 11/18/2003, Additional history exists Zoster Vaccines (1 of 2) 2048 RSV Patients and Patients Aged 60 years or older (1 - 1-dose 75+ series) 2073 Hepatitis B Vaccines Completed 11/25/1999, 08/15/1999, 1998 HIB Vaccines Completed 02/03/2000, 1212/1998, 03/10/1999, Additional history exists IPV Vaccines Completed 11/18/2003, 07/06, 03/10/1999, Additional history exists HPV Vaccines Completed 03/18/2010, 11/03, 09/21/2009 Meningococcal Vaccine Completed 02/13/2017, 010 RSV under 20 months Aged Out No longe r eligible based on patient's age to complete this topic Rotavirus Vaccines Aged Out No longer eligible based on patient's age to complete this topic Insurance [address] [place], [place] [address] C[employer] Care Teams Cathode Ray Tube Salvage Processor Relationship Specialty Start Date End Date Codie Barrow FNP [address] [place] [phone] PCP - General Family Medicine 01/24/22
[2024-07-29 11:49] LABS: CT PCR NOT DETECTED (Not Detect.); NG PCR NOT DETECTED (Not Detect.)
[2024-07-29 15:01] LABS: Bacterial Vaginosis PCR NEGATIVE (Negative); Candida Group PCR NOT DETECTED (Not Detect); Candida glab krusei PCR NOT DETECTED (Not Detect); Trichomonas vaginalis PCR NOT DETECTED (Not Detect)
== END 2024-07-28 18:23 | disposition home or self-care (01) ==
LOC: HO.HHCLNP 18:22
PROVIDERS: Visit Provider Registered Nurse
DX: N93.9 Abnormal uterine and vaginal bleeding, unspecified (principal)
CPT/HCPCS: 81515; 87491; 87591

== ENCOUNTER 2024-07-30 11:24 | Outpatient (REF) | payer MEDICAID, SELFPAY ==
[2024-07-30 13:39] LABS: MANUAL DIFF FLAG NO
[2024-07-30 14:17] LABS: Ferritin 8 ng/mL (10-122)
--- OUTSIDE RECORDS SUMMARY | 2024-07-30 14:21 | XMS_ITS | Clinical Summary ---
Author Organization [employer] Address [address] [facility] 7t [place] [address] Care Team Providers Care Rn Document Improvement Name Role Phone Codie Barrow [facility] Primary Care Provider [phone] Allergies No known active allergies Medications Fluticasone Furoate-Vilante rol (Breo Ellipta) 200-25 MCG/ACT aerosol powder Inhale. Active Umeclidinium [place] (Incruse Ellipta) 62.5 MCG/ACT aerosol powder Inhale. Active omeprazole OTC (PriLOSEC OTC) 20 MG EC tablet Take 20 mg by mouth before breakfast. Do not crush, chew, or split. Active ergocalciferol (Vitamin D2) 1.25 MG (73106 UT) capsuleIndicati ons:Vitamin D deficiency Take 1 capsule (1.25 mg) by mouth 1 (one) time per week. For 8 weeks 8 capsule 04/02/2024 Active Active Problems Problem Noted Date Diagnosed Date Gastroesophageal reflux disease 04/02/2024 Mixed anxiety and depressive disorder 08/19/2021 Asthma 06/09/2021 Encounters Date Type Department Care Team Description 07/28/2024 11:30 AM EST Office Visit [facility] [address] [place] [address] Codie Barrow FNP Abnormal uterine bleeding (Primary Dx) 07/28/2024 Travel 07/23/2024 Telephone [facility] [address] [place] [address] Codie Barrow FNP Nurse Triage [...] Description 08/11/2024 3:15 PM EDT Procedure Visit [facility] [address] [place], [place] [phone] [place], [place], [facility] [address] [place] [address] Health Maintenance Due Date Last Done Comments [...] 24 SDOH Screening 04/02/2025 04/02/2024 Tobacco Screening 07/29/2025 07/29/2024 DTaP/Tdap/Td Vaccines (8 - Td or Tdap) 06/09/2031 06/09/2021, 11/25/2009, 11/18/2003, Additional history exists Zoster Vaccines (1 of 2) 2048 RSV Patients and Patients Aged 60 years or older (1 - 1-dose 75+ series) 2073 Hepatitis B Vaccines Completed 11/25/1999, 08/15/1999, 1998 HIB Vaccines Completed 02/03/2000, 120 12/1998, 03/10/1999, Additional history exists IPV Vaccines Completed 11/18/2003, 07/06, 03/10/1999, Additional history exists HPV Vaccines Completed 03/18/2010, 11/03, 09/21/2009 Meningococcal Vaccine Completed 02/13/2017, 010 RSV under 20 months Aged Out No longe r eligible based on patient's age to complete this topic Rotavirus Vaccines Aged Out No longer eligible based on patient's age to complete this topic Procedures Procedure Name Priority Date/Time Associated Diagnosis Comments FERRITIN Routine 07/30/2024 11:26 AM EST Abnormal uterine bleeding BACTERIAL VAGINOSIS PANEL Routine 07/28/2024 12:12 PM EST Abnormal uterine bleeding CHLAMYDIA/N. GONORRHOEAE RNA, TMA, UROGENITAL Routine 07/28/2024 12:12 PM EST Abnormal uterine bleeding from Last 3 Months Results * (ABNORMAL) Ferritin (07/30/2024 11:26 AM EST) Ferritin 8(L) 10 - 122 ng/mL [facility] Blood Venous blood specimen / Unknown 07/30/2024 11:26 AM EST 07/30/2024 1:34 PM EST [facility] RN ORTHOPAEDICS LAB BLOOD ORDERABLES Final Re sult [facility] [address] [place] [address] [phone] * Bacterial Vaginosis Panel (07/28/2024 12:12 PM EST) TRICHOMONAS VAGINALIS DETECTION BY PCR NOT DETECTED Not Detect [facility] BACTERIAL VAGINOSIS DETECTION BY PCR NEGATIVE Negative [facility] Comment:The BV organism targ ets of the Xpert Xpress MVP test can becommensal in women; Xpert Xpress MVP positive results forbacterial vaginosis should be considered in conjunction withother clinical and patient information to determine thedisease status. Organisms that are not detected by the XpertXpress MVP test have also been reported to be associatedwith BV and aerobic vaginitis.The Xpert Xpress MVP test performance has not been evaluatedin patients under the age of 14. YUE GROUP DETECTION BY PCR NOT DETECTED Not Detect [facility] Yue glab krusei PCR NOT DETECTED Not Detect [facility] Swab Vaginal structure / Unknown 07/28/2024 12:12 PM EST 07/28/2024 6:23 PM EST [facility] MICROBIOLOGY - GENERAL OR DERABLES Final Result [facility] [address] [place] [address] [phone] * Chlamydia/N. Gonorrhoeae RNA, TMA, Urogenitial (07/28/2024 12:12 PM EST) CT PCR NOT DETECTED Not Detect. [facility] Comment:A not detected test result does not exclude the possibilityof infection because test results can be affected byimproper specimen collection, concurrent antibiotic therapy,or the number of organisms in the specimen which may bebelow the sensitivity of the test. As with many diagnostictests, results from the Xpert CT/NG assay should beinterpreted in conjunction with other laboratory andclinical data available to the clinician.Xpert CT/NG performance has not been evaluated in patientsless than 14 years of age. The assay should not be used forthe evaluationof suspected sexual abuse or for other medico-legalindications. Additional testing is recommended in anycircumstance when false positive or false negative resultscould lead to adverse medical, social or psychologicalconsequences. NG PCR NOT DETECTED Not Detect. [facility] Comment:A not detected test result does not exclude the possibilityof infection because test results can be affected byimproper specimen collection, concurrent antibiotic therapy,or the number of organisms in the specimen which may bebelow the sensitivity of the test. As with many diagnostictests, results from the Xpert CT/NG assay should beinterpreted in conjunction with other laboratory andclinical data available to the clinician.Xpert CT/NG performance has not been evaluated in patientsless than 14 years of age. The assay should not be used forthe evaluationof suspected sexual abuse or for other medico-legalindications. Additional testing is recommended in anycircumstance when false positive or false negative resultscould lead to adverse medical, social or psychologicalconsequences. Swab Vaginal structure / Unknown 07/28/2024 12:12 PM EST 07/28/2024 7:04 PM EST Narrative [facility] - 07/29/2024 11:49 AM EST Vaginal [facility] MICROBIOLOGY - GENERAL OR DERABLES Final Result [facility] [address] [place] [address] [phone] from Last 3 Months Insurance [employer] C3 Care Teams Rn Document Improvement Relationship Specialty Start Date End Date [place]ie martinez RN ORTHOP[facility]ED[facility] [address] [place] [id number] PCP - General Family Medicine 01/24/22
--- OUTSIDE RECORDS SUMMARY | 2024-07-30 14:21 | XMS_ITS | Encounter Summary ---
Author Organization [employer] Address [address] [facility] 7t [place] [address] Care Team Providers Care Social Media Editor Name Role Phone Codie Barrow [facility] Primary Care Provider [phone] Reason for Visit * Reason Onset Date Comments Nurse Triage 07/23/2024 Encounter Details Date Type Department Care Team ([facility] st Contact Info) Description 07/23/2024 Telephone [facility] [address] [place], [place] [phone] Codie Barrow [facility] [address] [place] [address] Nurse Triage Social History Tobacco Use Types [...] t he electric, gas, oil or water [employer] threatened to shut off services in your [...] message prior. Please return call to pt [phone] * Telephone Encounter - Raymond Lemons - [...] 3:15 PM EDT Procedure Visit [facility] [address] [place] [address] Codie Barrow FNP [address] [place] [address] documented as of this encounter Visit Diagnoses Not on filedocumented in this encounter Additional Health Concerns Assessment Noted Time PHQ-9 Depression Total Score: 0 04/02/20 24 10:40 AM EDT documented as of this encounter Care Teams Social Media Editor Relationship Specialty Start Date End Date Codie Barrow FNP [address] [place] [phone] PCP - General Family Medicine 01/24/22 documented as of this encounter
--- OUTSIDE RECORDS SUMMARY | 2024-07-30 14:21 | XMS_ITS | Encounter Summary ---
Author Organization [employer] [facility] Address [address] [facility] [address] [place] [address] Care Team Providers Care Supervising Film Or Videotape Editor Name Role Phone Codie Barrow Primary Care Provider Reason for Referral * Imaging (Routine) - Authorized Specialty Diagnoses / Procedures Referred By Contac t Referred To Contact Radiology Diagnoses Abnormal uterine bleeding Procedures US Pelvis Transvaginal Codie Barrow FNP [address] [place] [address] Phone: tel: fax: [address] Phone: tel: fax: Referral ID Status Reason Start Date Expiration Date V isits Requested Visits Authorized [id number] Authorized 07/29/2024 07/29/2025 1 1 * Imaging (Routine) - Authorized Specialty Diagnoses / Procedures Referred By Contpiper t Referred To Contact Radiology Diagnoses Abnormal uterine bleeding Procedures Us Pelvis complete Codie Barrow FNP [address] [place] [address] Phone: tel: fax: [address] Phone: tel: fax: Referral ID Status Reason Start Date Expiration Date V isits Requested Visits Authorized [id number] Authorized 07/29/2024 07/29/2025 1 1 Reason for Visit * Reason Comments Vaginal Bleeding Encounter Details Date Type Department Care Team ([facility] st Contact Info) Description 07/28/2024 11:30 AM EST Office Visit [facility] [address] [place] [address] [place], Codie, LPTA [address] [place] [address] Abnormal uterine bleeding (Primary Dx) Social History [...] 11:38 AM EST documented in this encounter Progress Notes * [facility], [facility] - 07/28/2024 11:30 AM EST SUBJECTIVE: Leslye Oglesby is a 23 y.o. year old adult who presents for evaluation of irregular spotting . Denies recent illness, injury, or hospitalization. Acute Concerns: Patient reports new midcycle spotting that initially started in January and lasted until April. Temporarily stopped and has since restarted in June. Light spotting lasting approximately 2 days in between normal cycles. Mild midline cramping associated. Has noticed seems to worsen after masturbation and alcohol intake. Patient has never been sexually active. No prior Pap smear. Reports remotehistory of ovarian cyst. No vaginal discharge, urinary symptoms. 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 Tobacco Use: None Alcohol Use: Occasionally Marijuana Use: None Other drug use: None Reproductive Health: Sexually Active: Has never been sexually active Partners are: AMAB Menses: Regular q. 28 days Control: Abstinence Planning a in the next 12 months: No Patient Active Problem List Diagnosis Asthma Mixed anxiety and depressive disorder Gastroesophageal reflux disease No past surgical history on file. Family History Problem Relation Name Age of Onset Bipolar disorder Mother Kidney disease Mother Osteoarthritis Mother Diabetes Mother Hypertension Mother Hyperlipidemia Mother Colon cancer Maternal Grandmother Review of Systems Constitutional: Negative for activity change, diaphoresis, fatigue, fever and unexpected weight change. Gastrointestinal: Negative for abdominal distention, abdominal pain, blood in stool, diarrhea and nausea. Genitourinary: Positive for menstrual problem. Negative for decreased urine volume, difficulty urinating, dysuria, flank pain, frequency, genital sores, hematuria, penile discharge, penile pain, penile swelling, scrotal swelling and testicular pain. OBJECTIVE: Vitals: 07/28/24 1138 BP: 120/82 Pulse: 80 Resp: 18 Temp: 97.5 ??F (36.4 ??C) Physical Exam Constitutional: General: Leslye is not in acute distress. Appearance: Normal appearance. HENT: Head: Normocephalic. Right Ear: External ear normal. Left Ear: External ear normal. Eyes: Conjunctiva/sclera: Conjunctivae normal. Pulmonary: Effort: Pulmonary effort is normal. Neurological: General: No focal deficit present. Mental Status: Leslye is alert and oriented to person, place, and time. Psychiatric: Mood and Affect: Mood normal. ASSESSMENT/PLAN Unable to perform pelvic exam due to time constraints today. Patient prefers to return in 1 to 2 weeks for pelvic exam and Pap smear. In the interim will order vaginitis testing and pelvic ultrasound. ED precautions advised. Diagnosis Plan 1. Abnormal uterine bleeding Chlamydia/N. Gonorrhoeae RNA, TMA, Urogenitial Bacterial Vaginosis Panel CBC auto differential Ferritin CBC auto differential Ferritin Us Pelvis complete US Pelvis Transvaginal Us Pelvis complete US Pelvis Transvaginal Follow Up: 2 weeks, pap Current Outpatient Medications on File Prior to Visit Medication Sig Dispense Refill ergocalciferol (Vitamin D2) 1.25 MG (66376 UT) capsule Take 1 capsule (1.25 mg) by mouth 1 (one) time per week. For 8 weeks 8 capsule 0 Fluticasone Furoate-Vilanterol (Breo Ellipta) 200-25 MCG/ACT aerosol powder Inhale. omeprazole OTC (PriLOSEC OTC) 20 MG EC tablet Take 20 mg by mouth before breakfast. Do not crush, chew, or split. Umeclidinium [place] (Incruse Ellipta) 62.5 MCG/ACT aerosol powder Inhale. No current facility-administered medications on file prior to visit. documented in this encounter Plan of Treatment Upcoming Encounters Date Type Department Care Team (Late st Contact Info) Description 08/11/2024 3:15 PM EDT Procedure Visit [facility] [address] [place] [address] [facility] [address] [place] [address] Scheduled Orders Name Type Priority Associated Diagnoses Orde r Schedule CBC auto differential Lab Routine Abnormal uterine bleeding Expected: 07/28/2024 (Approximate), Expires: 07/28/2025 Us Pelvis complete Imaging Routine Abnormal uterine bleeding Expected: 07/29/2024, Expires: 07/29/2025 US Pelvis Transvaginal Imaging Routine Abnormal uterine bleeding Expected: 07/29/2024, Expires: 07/29/2025 documented as of this encounter Procedures Procedure Name Priority Date/Time Associated Diagnosis Comments FERRITIN Routine 07/30/2024 11:26 AM EST Abnormal uterine bleeding BACTERIAL VAGINOSIS PANEL Routine 07/28/2024 12:12 PM EST Abnormal uterine bleeding CHLAMYDIA/N. GONORRHOEAE RNA, TMA, UROGENITAL Routine 07/28/2024 12:12 PM EST Abnormal uterine bleeding documented in this encounter Results * (ABNORMAL) Ferritin (07/30/2024 11:26 AM EST) Ferritin 8(L) 10 - 122 ng/mL [facility] Blood Venous blood specimen / Unknown 07/30/2024 11:26 AM EST 07/30/2024 1:34 PM EST [facility] BLOOD ORDERABLES Final Re sult [facility] [address] [place] [address] [phone] * Bacterial Vaginosis Panel (07/28/2024 12:12 PM EST) TRICHOMONAS VAGINALIS DETECTION BY PCR NOT DETECTED Not Detect [facility] BACTERIAL VAGINOSIS DETECTION BY PCR NEGATIVE Negative [facility] Comment:The BV organism targ ets [...] DETECTION BY PCR NOT DETECTED Not Detect [facility] Yue glab krusei PCR NOT DETECTED Not Detect [facility] Swab Vaginal structure / Unknown 07/28/2024 12:12 PM EST 07/28/2024 6:23 PM EST [facility] MICROBIOLOGY - GENERAL OR DERABLES Final Result [facility] [address] [place] [phone] * Chlamydia/N. Gonorrhoeae RNA, TMA, Urogenitial (07/28/2024 12:12 PM EST) CT PCR NOT DETECTED Not Detect. [facility] Comment:A not detected test result [...] psychologicalconsequences. NG PCR NOT DETECTED Not Detect. [facility] Comment:A not detected test result [...] PM EST 07/28/2024 7:04 PM EST Narrative [facility] - 07/29/2024 11:49 AM EST Vaginal [facility] MICROBIOLOGY - GENERAL OR DERABLES Final Result [facility] [address] [place] [phone] documented in this encounter Visit Diagnoses Diagnosis Abnormal uterine bleeding- Primary Unspecified disorder of menstruation and other abnormal bleeding from female genital tract documented in this encounter Additional Health Concerns Assessment Noted Time PHQ-9 Depression Total Score: 0 04/02/20 24 10:40 AM EDT documented as of this encounter Care Teams Supervising Film Or Videotape Editor Relationship Specialty Start Date End Date [place] F[place] [address] [place] [phone] PCP - General Family Medicine 01/24/22 documented as of this encounter
--- OUTSIDE RECORDS SUMMARY | 2024-07-30 14:21 | XMS_ITS | Encounter Summary ---
Author Organization [employer] Address [address] [facility] 7[address] [place] [address] Care Team Providers Care Padding Machine Operator Name Role Phone Codie Barrow [facility] Primary Care Provider [phone] Encounter Details Date Type Department Care Team [...] Description 08/11/2024 3:15 PM EDT Procedure Visit [facility] [address] [place] [address] Codie Barrow FNP [address] [place] [address] documented as of this encounter Visit Diagnoses Not on filedocumented in this encounter Additional Health Concerns Assessment Noted Time PHQ-9 Depression Total Score: 0 04/02/20 24 10:40 AM EDT documented as of this encounter Care Teams Padding Machine Operator Relationship Specialty Start Date End Date Codie Barrow FNP [address] [place] [address] PCP - General Family Medicine 01/24/22 documented as of this encounter
[2024-07-30 17:43] LABS: Basophils Percent Auto 0.4 % (0-2); Eosinophils Percent Auto 0.7 % (0-4); Hematocrit 30.9 % (37.0-47.0); Hemoglobin 9.2 g/dl (12.0-16.0); Imm Gran Abs Auto 0.01 X10*3/uL (0.00-0.03); Imm Gran Pct Auto 0.2 % (0.0-0.4); Lymphocytes Absolute Auto 1.4 X10*3/uL (1.2-4.9); Lymphocytes Percent Auto 25.2 % (20-40); Mean Corpuscular HGB Conc 29.8 g/dl (31.0-35.0); Mean Corpuscular Hemoglobin 21.7 pg (27.0-33.0); Mean Platelet Volume 11.8 fL (9.4-12.3); Monocytes Absolute Auto 0.4 X10*3/uL (0.1-1.2); Monocytes Percent Auto 6.9 % (2-11); Neutrophils Absolute Auto 3.6 x10*3/uL (2.0-8.3); Neutrophils Percent Auto 66.6 % (45-73); Platelet Count 263 X10*3/uL (160-400); Red Blood Count 4.23 X10*6/uL (4.20-5.50); Red Cell Distribution Width 18.6 % (11.0-16.0); White Blood Count 5.5 X10*3/uL (4.8-10.8)
== END 2024-07-30 11:25 | disposition home or self-care (01) ==
LOC: HO.HHCL 11:24
PROVIDERS: Visit Provider Registered Nurse
DX: N93.9 Abnormal uterine and vaginal bleeding, unspecified (principal)
CPT/HCPCS: 36415; 82728; 85025

== ENCOUNTER 2024-10-01 14:55 | Outpatient (REF) | payer MEDICAID, SELFPAY ==
--- NOTE | ~2024-10-01 | US_ITS ---
EXAMINATION: US PELVIS HISTORY: 23-year-old female with persistent midcycle spotting COMPARISON: There are no prior studies for comparison. TECHNIQUE: Transabdominal real-time 2D dunaway-scale ultrasound was performed. The patient declined endovaginal examination. FINDINGS: Uterus: The uterus is normal in size, measuring 7.2 x 3.4 x 4.0 cm. Myometrium has a normal echotexture. No fibroids are identified. Endometrium: The endometrial stripe measures 3 mm in thickness. Right ovary: The right ovary measures 2.0 x 2.0 x 2.1 cm. The right ovary is normal in size and echotexture. Left ovary: The left ovary measures 1.4 x 2.1 x 1.7 cm. The left ovary is normal in size and echotexture. Pelvic fluid: none. US/US pelvic complete IMPRESSION: Unremarkable pelvic ultrasound. Electronically signed by: Srini Jordan MD 10/02/2024 07:41 AM EDT
--- OUTSIDE RECORDS SUMMARY | 2024-10-01 16:02 | XMS_ITS | Clinical Summary ---
Author Organization [employer] Address [address] [facility] 7t [place] [address] Care Team Providers Care President And Chief Operating Officer Name Role Phone Codie Barrow [facility] Primary Care Provider [phone] Allergies No known active allergies Medications Fluticasone Furoate-Vilante rol (Breo Ellipta) 200-25 MCG/ACT aerosol powder Inhale. Active Umeclidinium [place] (Incruse Ellipta) 62.5 MCG/ACT aerosol powder Inhale. Active omeprazole OTC (PriLOSEC OTC) 20 MG EC tablet Take 20 mg by mouth before breakfast. Do not crush, chew, or split. Active ergocalciferol (Vitamin D2) 1.25 MG (91711 UT) capsuleIndicati ons:Vitamin D deficiency Take 1 capsule (1.25 mg) by mouth 1 (one) time per week. For 8 weeks 8 capsule 04/02/2024 Active ferrous gluconate (Fergon) 324 (38 Fe) MG tabletIndicatio ns:Iron deficiency anemia due to chronic blood loss Take 1 tablet (324 mg) by mouth Once per day. 30 tablet 11 07/31/2024 Active Active Problems Problem Noted Date Diagnosed Date Gastroesophageal reflux disease 04/02/2024 Mixed anxiety and depressive disorder 08/19/2021 Asthma 06/09/2021 Encounters Date Type Department Care Team Description 09/12/2024 Telephone [facility] [address] [place] [address] Codie Barrow FNP message from pcp 09/10/2024 2:30 PM EDT Telemedicine [facility] [address] [place] [address] Codie Barrow FNP Iron deficiency anemia due to chronic blood loss (Primary Dx); Abnormal uterine bleeding 09/10/2024 Travel 08/21/2024 Telephone [facility] [place] [address] Codie Barrow FNP Care Coordination 08/15/2024 Population Health Risk Score [facility] ([facility]) [address] [phone] Provider, Population Health Generic 08/11/2024 3:15 PM EDT Procedure Visit [facility] [place] [address] Codie Barrow FNP Encounter for Papanicolaou smear of cervix (Primary Dx) 08/11/2024 Travel 07/31/2024 Telephone [facility] [place] [address] Codie Barrow FNP Results 07/31/2024 Orders Only [facility] [address] Codie Barrow FNP Iron deficiency anemia due to chronic blood loss (Primary Dx) 07/28/2024 11:30 AM EST Office Visit [facility] [place] [address] Codie Barrow FNP Abnormal uterine bleeding (Primary Dx) 07/28/2024 Travel 07/23/2024 Telephone [facility] [place] [address] Codie Barrow FNP Nurse Triage from Last [...] Sign Reading Time Taken Comments Blood Pressure 127/85 08/11/2024 3:30 PM EDT Pulse 98 08/11/2024 3:30 PM EDT Temperature 36.3 ??C (97.4 ??F) 08/11/2024 3:30 PM ED T Respiratory Rate 18 08/11/2024 3:30 PM EDT Oxygen Saturation 99% 04/02/2024 10:32 AM EDT Inhaled Oxygen Concentration - - Weight 43.4 kg (95 lb 9.6 oz) 08/11/2024 3:30 PM EDT Height 154.9 cm (5' 1 ) 08/11/2024 3:30 PM EDT Body Mass Index 18.06 08/11/2024 3:30 PM EDT Plan of Treatment Upcoming Encounters Date Type Department Care Team (Late st Contact Info) Description 10/20/2024 3:15 PM EDT Office Visit [facility] [address] [place] [address] [facility] [address] [place] [address] Health Maintenance Due Date Last Done Comments HIV Screening 1998 Family Planning (PISQ) 2013 Hepatitis A Vaccines [...] 04/02/2024, 04/02/20 24 SDOH Screening 04/02/2025 04/02/2024 Alcohol/Substance Use Screening 09/10/2025 09/10/2024 Tobacco Screening 09/12/2025 09/12/2024 DTaP/Tdap/Td Vaccines (8 - Td or Tdap) 06/09/2031 06/09/2021, 11/25/2009, 11/18/2003, Additional history exists Zoster Vaccines (1 of 2) 2048 RSV Patients and Patients Aged 60 years or older (1 - 1-dose 75+ series) 2073 Hepatitis B Vaccines Completed 11/25/1999, 08/15/1999, 1998 HIB Vaccines Completed 02/03/2000, 12/1998, 03/10/1999, Additional history exists IPV Vaccines [...] 07/30/2024 11:26 AM EST Abnormal uterine bleeding CBC WITH AUTO DIFFERENTIAL Routine 07/30/2024 11:26 AM EST Abnormal uterine bleeding BACTERIAL VAGINOSIS PANEL Routine 07/28/2024 12:12 PM EST Abnormal uterine bleeding CHLAMYDIA/N. GONORRHOEAE RNA, TMA, UROGENITAL Routine 07/28/2024 12:12 PM EST Abnormal uterine bleeding from Last 3 Months Results * (ABNORMAL) CBC auto differential (07/30/2024 11:26 AM EST) White Blood Count 5.5 4.8 - 10.8 X10*3/uL [facility] Red Blood Count 4.23 4.20 - 5.50 X10*6/uL [facility] Hemoglobin 9.2(L) 12.0 - 16.0 g/dl [facility] Hematocrit 30.9(L) 37.0 - 47.0 % [facility] Mean Corpuscular Volume 73.0(L) 80.0 - 98.0 fL [facility] Mean Corpuscular Hemoglobin 21.7(L) 27.0 - 33.0 pg [facility] Mean Corpuscular HGB Conc 29.8(L) 31.0 - 35.0 g/dl [facility] Red Cell Distribution Width 18.6(H) 11.0 - 16.0 % [facility] Platelet Count 263 160 - 400 X10*3/uL [facility] Mean Platelet Volume 11.8 9.4 - 12.3 fL [facility] Neutrophils Percent Auto 66.6 45 - 73 % [facility] Imm Gran Pct Auto 0.2 0.0 - 0.4 % [facility] Lymphocytes Percent Auto 25.2 20 - 40 % [facility] Monocytes Percent Auto 6.9 2 - 11 % [facility] Eosinophils Percent Auto 0.7 0 - 4 % [facility] Basophils Percent Auto 0.4 0 - 2 % [facility] NRBC Pct Auto 0.0 0.0 - 0.2 /100WBC [facility] Neutrophils Absolute Auto 3.6 2.0 - 8.3 x10*3/uL [facility] Imm Gran Abs Auto 0.01 0.00 - 0.03 X10*3/uL [facility] Lymphocytes Absolute Auto 1.4 1.2 - 4.9 X10*3/uL [facility] Monocytes Absolute Auto 0.4 0.1 - 1.2 X10*3/uL [facility] Eosinophils Absolute Auto 0.0 0.0 - 0.4 X10*3/uL [facility] Basophils Absolute Auto 0.0 0.0 - 0.2 X10*3/uL [facility] NRBC Abs Auto 0.000 0.0 - 0.012 X10*3/uL [facility] Blood Venous blood specimen / Unknown 07/30/2024 11:26 AM EST 07/30/2024 1:34 PM EST [facility] BLOOD ORDERABLES Final Re sult Performing Organization Address [facility]/ZIP Co de Phone Number [facility] [address] [place] [address] [phone] * (ABNORMAL) Ferritin (07/30/2024 11:26 AM EST) Ferritin 8(L) 10 - 122 ng/mL [facility] Blood Venous blood specimen / Unknown 07/30/2024 11:26 AM EST 07/30/2024 1:34 PM EST [facility] BLOOD ORDERABLES Final Re sult Performing Organization Address City/[facility]/ZIP Co de Phone Number [facility] [address] [place] [address] [phone] * Bacterial Vaginosis Panel (07/28/2024 12:12 PM EST) TRICHOMONAS VAGINALIS DETECTION BY PCR NOT DETECTED Not Detect [facility] BACTERIAL VAGINOSIS DETECTION BY PCR NEGATIVE Negative [facility] Comment:The BV organism targ ets [...] DETECTION BY PCR NOT DETECTED Not Detect [facility] Yue glab krusei PCR NOT DETECTED Not Detect [facility] Swab Vaginal structure / Unknown 07/28/2024 12:12 PM EST 07/28/2024 6:23 PM EST [facility] MICROBIOLOGY - GENERAL OR DERABLES Final Result [facility] [address] [place] [phone] * Chlamydia/N. Gonorrhoeae RNA, TMA, Urogenitial (07/28/2024 12:12 PM EST) CT PCR NOT DETECTED Not Detect. [facility] Comment:A not detected test result [...] psychologicalconsequences. NG PCR NOT DETECTED Not Detect. [facility] Comment:A not detected test result [...] PM EST 07/28/2024 7:04 PM EST Narrative [facility] - 07/29/2024 11:49 AM EST Vaginal [facility] MICROBIOLOGY - GENERAL OR DERABLES Final Result Performing Organization Address City/State/[facility] Co de Phone Number [facility] [address] [place] [address] [phone] from Last 3 Months Insurance [employer] Care Teams President And Chief Operating Officer Relationship Specialty Start Date End Date PushpaCodie martinez FNP [address] [place] [phone] PCP - General Family Medicine 01/24/22
== END 2024-10-01 14:56 | disposition home or self-care (01) ==
LOC: HO.US 14:55
PROVIDERS: PCP Registered Nurse; Visit Provider Registered Nurse
DX: N93.9 Abnormal uterine and vaginal bleeding, unspecified (principal)
CPT/HCPCS: 76856

== ENCOUNTER 2024-10-08 12:41 | Outpatient (REF) | payer MEDICAID, SELFPAY ==
[2024-10-08 13:31] LABS: MANUAL DIFF FLAG NO
--- OUTSIDE RECORDS SUMMARY | 2024-10-08 13:45 | XMS_ITS | Encounter Summary ---
Author Organization [employer] Address [address] [facility] 7t [place] [address] Care Team Providers Care Cryptographic Machine Operator Name Role Phone Codie Barrow [facility] Primary Care Provider [phone] Reason for Visit * Reason Onset Date Comments Results 10/06/2024 Encounter Details Date Type Department Care Team ([facility] st Contact Info) Description 10/06/2024 Telephone [facility] MEDICINE [address] [place], [place] [phone] Codie Barrow [facility] [address] [place], [place] [phone] Results Social History Tobacco Use Types Packs/Day Years [...] encounter Miscellaneous Notes * Telephone Encounter - Ailyn Arita [place] - 10/06/2024 9:41 AM EDT Result Communication Resulted Orders Us Pelvis complete Narrative [place] [phone] Ultrasound Report Signed Patient: Leslye Oglesby MR#: [id number] : 2000 Acct:[id number] Age/Sex: 23 / F ADM Date: 10/01/24 Loc: HO. Attending Dr: Codie BORDEN Ordering Physician: Codie Barrow Date of Service: 10/01/24 Procedure(s): US pelvic complete Accession Number(s): [id number] cc: Codie Barrow EXAMINATION: US PELVIS HISTORY: 23-year-old female with persistent midcycle spotting COMPARISON: There are no prior studies for comparison. TECHNIQUE: Transabdominal real-time 2D dunaway-scale ultrasound was performed. The patient declined endovaginal examination. FINDINGS: Uterus: The uterus is normal in size, measuring 7.2 x 3.4 x 4.0 cm. Myometrium has a normal echotexture. No fibroids are identified. Endometrium: The endometrial stripe measures 3 mm in thickness. Right ovary: The right ovary measures 2.0 x 2.0 x 2.1 cm. The right ovary is normal in size and echotexture. Left ovary: The left ovary measures 1.4 x 2.1 x 1.7 cm. The left ovary is normal in size and echotexture. Pelvic fluid: none. US/US pelvic complete IMPRESSION: Unremarkable pelvic ultrasound. Electronically signed by: Srini Jordan MD 10/02/2024 07:41 AM EDT RP Dictated By: Srini Jordan MD Signed By: <Electronically signed by Srini Jordan MD in OV> 10/02/24 0741 DD/ 1513 TD/TT: 10/01/24 1516 [employer] Faculty Member: 9:41 AM Results were successfully communicated with the patient and they acknowledged their understanding. * Telephone Encounter - Ailyn Arita [place] - 10/06/2024 9:41 AM EDT ----- Message from Codie Barrow sent at 10/03/2024 2:23 PM EDT ----- Please let patient know that pelvic ultrasound was normal, please also let her know that we do now have the small speculuum and so we can try to reschedule her pap at some point as well. Thanks! documented in this encounter Plan of Treatment Upcoming Encounters Date Type Department Care Team (Late st Contact Info) Description 10/20/2024 3:15 PM EDT Office Visit [facility] MEDICINE [address] [place] [address] Codie Barrow FNP [address] [place] [address] documented as of this encounter Visit Diagnoses Not on filedocumented in this encounter Additional Health Concerns Assessment Noted Time PHQ-9 Depression Total Score: 0 04/02/20 24 10:40 AM EDT documented as of this encounter Care Teams Cryptographic Machine Operator Relationship Specialty Start Date End Date Codie Barrow FNP [address] [place] [address] PCP - General Family Medicine 01/24/22 documented as of this encounter
--- OUTSIDE RECORDS SUMMARY | 2024-10-08 13:45 | XMS_ITS | Clinical Summary ---
Author Organization [employer] Address [address] [place] [address] Care Team Providers Care Strap Folding Machine Operator Name Role Phone Codie Barrow EDGER MACHINE HELPER Primary Care Provider [phone] Allergies No known active allergies Medications Fluticasone Furoate-Vilante rol (Breo Ellipta) 200-25 MCG/ACT aerosol powder Inhale. Active Umeclidinium [place] (Incruse Ellipta) 62.5 MCG/ACT aerosol powder Inhale. Active omeprazole OTC (PriLOSEC OTC) 20 MG EC tablet Take 20 mg by mouth before breakfast. Do not crush, chew, or split. Active ergocalciferol (Vitamin D2) 1.25 MG (57640 UT) capsuleIndicati ons:Vitamin D deficiency Take 1 [...] Encounters Date Type Department Care Team Description 10/06/2024 Telephone [facility] [address] [place] [address] Codie Barrow FNP Results 09/12/2024 Telephone [facility] [address] [place] [address] Codie Barrow FNP message from pcp 09/10/2024 2:30 PM EDT Telemedicine [facility] [address] [place] [address] Codie Barrow FNP Iron deficiency anemia due to chronic blood loss (Primary Dx); Abnormal uterine bleeding 09/10/2024 Travel 08/21/2024 Telephone [facility] [place] [address] Codie Barrow FNP Care Coordination 08/15/2024 Population Health Risk Score [facility] [address] [address] Provider, Population Health Generic 08/11/2024 3:15 PM EDT Procedure Visit [facility] [place] [address] Codie Barrow FNP Encounter for Papanicolaou smear of cervix (Primary Dx) 08/11/2024 Travel 07/31/2024 Telephone [facility] [place] [address] Codie Barrow FNP Results 07/31/2024 Orders Only [facility] [address] Codie Barrow FNP Iron deficiency anemia due to chronic blood loss (Primary Dx) 07/28/2024 11:30 AM EST Office Visit [facility] [place] [address] Codie Barrow FNP Abnormal uterine bleeding (Primary Dx) 07/28/2024 Travel 07/23/2024 Telephone [facility] [place] [address] Codie Barrow FNP Nurse Triage from Last [...] Description 10/20/2024 3:15 PM EDT Office Visit [facility] [address] [place] [address] Pushpa, Codie, EDGER MACHINE HELPER [address] [place], [place] [phone] Health Maintenance Due Date Last Done Comments HIV Screening 1998 Family Planning (PISQ) 2013 Hepatitis A Vaccines (2 of 2 - 2-dose series) 03/31/2014 09/29/2013 Hepatitis C Screening 2016 Pneumococcal Vaccine: Pediatrics (0 to 5 Years) and At-Risk Patients (6 to 49) Years) (1 of 2 - PCV) 2017 08/01/2000, 02/03/2000, 08/15/1999, Additional history exists Pap Smear 10/27/2019 COVID-19 Vaccine ( - season) 2024 01/19/2022, 12/29/2021 Influenza Vaccine (#1) 2024 8, 02/16/2014, 02/17/2013, Additional history exists Depression Screening 04/02/2025 04/02/2024, 04/02/20 SDOH Screening 04/02/2025 04/02/2024 Alcohol/Substance Use Screening [...] Procedure Name Priority Date/Time Associated Diagnosis Comments US PELVIS COMPLETE Routine 10/01/2024 3: 13 PM EDT FERRITIN Routine 07/30/2024 11:26 AM EST Abnormal uterine bleeding CBC WITH AUTO DIFFERENTIAL Routine 07/30/2024 11:26 AM EST Abnormal uterine bleeding BACTERIAL VAGINOSIS PANEL Routine 07/28/2024 12:12 PM EST Abnormal uterine bleeding CHLAMYDIA/N. GONORRHOEAE RNA, TMA, UROGENITAL Routine 07/28/2024 12:12 PM EST Abnormal uterine bleeding from Last 3 Months Results * Us Pelvis complete (10/01/2024 3:13 PM EDT) Anatomical Region Laterality Modality Pelvis Ultrasound 10/01/2024 3:13 PM EDT Narrative 10/02/2024 7:44 AM EDT ? [facility] ?[address] ?[place] [id number] ? Ultrasound Report ? Signed ? Patient: Mendel,Natanya L ?MR#: [id number] ?? [id number] ? : 2000 ?Acct:[id number] ? Age/Sex: 23 / F ?ADM Date: 10/01/24 ? Loc: HO.US ? Attending Dr: Codie Barrow EDGER MACHINE HELPER ? Ordering Physician: Pushpa,Codie EDGER MACHINE HELPER ?? Date of Service: 10/01/24 ?? Procedure(s): US pelvic complete ?? Accession Number(s): [id number] ? cc: Codie Barrow EDGER MACHINE HELPER ? EXAMINATION: ??US PELVIS ? HISTORY: 23-year-old female with persistent midcycle spotting ? COMPARISON: There are no prior studies for comparison. ? TECHNIQUE: ? Transabdominal real-time 2D dunaway-scale ultrasound was performed. ??The ?? patient declined endovaginal examination. ? FINDINGS: ? Uterus: ??The uterus is normal in size, measuring 7.2 x 3.4 x 4.0 cm. ? Myometrium has a normal echotexture. ??No fibroids are identified. ? Endometrium: ??The endometrial stripe measures 3 mm in thickness. ? Right ovary: ??The right ovary measures 2.0 x 2.0 x 2.1 cm. ??The right ?? ovary is normal in size and echotexture. ? Left ovary: ?? The left ovary measures 1.4 x 2.1 x 1.7 cm. ??The left ?? ovary is normal in size and echotexture. ? Pelvic fluid: none. ? US/US pelvic complete ?? IMPRESSION: ?? Unremarkable pelvic ultrasound. ? Electronically signed by: ??Srini Jordan MD ??10/02/2024 07:41 AM EDT ? Dictated By: ?Srini Jordan MD ? Signed By: ?<Electronically signed by Srini Jordan MD in OV> ?10/02/24 0741 ? DD/ 1513 ? TD/TT: 10/01/24 1516 ? State Epidemiologist: ? Procedure Note Elvia Chairez - 10/02/2024 [place] [address] Ultrasound Report Signed Patient: Leslye Oglesby LMR#: [id number] : 2000Acct:[id number] Age/Sex: 23 / FADM Date: 10/01/24 Loc: HO.US Attending Dr: Codie BORDEN Ordering Physician: Codie Barrow Date of Service: 10/01/24 Procedure(s): US pelvic complete Accession Number(s): [id number] cc: Codie Barrow EXAMINATION: US PELVIS HISTORY: [...] 10/02/24 0741 DD/ 1513 TD/TT: 10/01/24 1516 State Epidemiologist: [facility] IM US PROCEDURES Final Resul t * (ABNORMAL) CBC auto differential (07/30/2024 11:26 AM EST) White Blood Count 5.5 4.8 - 10.8 X10*3/uL [facility] Red Blood Count 4.23 4.20 - 5.50 X10*6/uL [facility] Hemoglobin 9.2(L) 12.0 - 16.0 g/dl [facility] Hematocrit 30.9(L) 37.0 - 47.0 % [facility] Mean Corpuscular Volume 73.0(L) 80.0 - 98.0 fL [facility] Mean Corpuscular Hemoglobin 21.7(L) 27.0 - 33.0 pg [facility] Mean Corpuscular HGB Conc 29.8(L) 31.0 - 35.0 g/dl [facility] Red Cell Distribution Width 18.6(H) 11.0 - 16.0 % [facility] Platelet Count 263 160 - 400 X10*3/uL [facility] Mean Platelet Volume 11.8 9.4 - 12.3 fL [facility] Neutrophils Percent Auto 66.6 45 - 73 % [facility] Imm Gran Pct Auto 0.2 0.0 - 0.4 % [facility] Lymphocytes Percent Auto 25.2 20 - 40 % [facility] Monocytes Percent Auto 6.9 2 - 11 % [facility] Eosinophils Percent Auto 0.7 0 - 4 % [facility] Basophils Percent Auto 0.4 0 - 2 % [facility] NRBC Pct Auto 0.0 0.0 - 0.2 /100WBC [facility] Neutrophils Absolute Auto 3.6 2.0 - 8.3 x10*3/uL [facility] Imm Gran Abs Auto 0.01 0.00 - 0.03 X10*3/uL [facility] Lymphocytes Absolute Auto 1.4 1.2 - 4.9 X10*3/uL [facility] Monocytes Absolute Auto 0.4 0.1 - 1.2 X10*3/uL [facility] Eosinophils Absolute Auto 0.0 0.0 - 0.4 X10*3/uL [facility] Basophils Absolute Auto 0.0 0.0 - 0.2 X10*3/uL [facility] NRBC Abs Auto 0.000 0.0 - 0.012 X10*3/uL [facility] Blood Venous blood specimen / Unknown 07/30/2024 11:26 AM EST 07/30/2024 1:34 PM EST [facility] EDGER MACHINE HELPER LAB BLOOD ORDERABLES Final Re sult [facility] [address] [place] [phone] * (ABNORMAL) Ferritin (07/30/2024 11:26 AM EST) Ferritin 8(L) 10 - 122 ng/mL [facility] Blood Venous blood specimen / Unknown 07/30/2024 11:26 AM EST 07/30/2024 1:34 PM EST [facility] EDGER MACHINE HELPER LAB BLOOD ORDERABLES Final Re sult Performing Organization Address City/[facility]/ZIP Co de Phone Number [facility] [address] [place] [address] [phone] * Bacterial Vaginosis Panel (07/28/2024 12:12 PM EST) [facility] TRICHOMONAS VAGINALIS DETECTION BY PCR NOT DETECTED Not Detect [facility] BACTERIAL VAGINOSIS DETECTION BY PCR NEGATIVE Negative [facility] Comment:The BV organism targ ets of [...] DETECTION BY PCR NOT DETECTED Not Detect [facility] Yue glab krusei PCR NOT DETECTED Not Detect [facility] Swab Vaginal structure / Unknown 07/28/2024 12:12 PM EST 07/28/2024 6:23 PM EST [facility] LAB MICROBIOLOGY - GENERAL OR DERABLES Final Result Performing Organization Address City/[facility]/ZIP Co de Phone Number [facility] [address] [place] [phone] * Chlamydia/N. Gonorrhoeae RNA, TMA, Urogenitial (07/28/2024 12:12 PM EST) [facility] CT PCR NOT DETECTED Not Detect. [facility] Comment:A not detected test result does [...] psychologicalconsequences. NG PCR NOT DETECTED Not Detect. [facility] Comment:A not detected test result does [...] PM EST 07/28/2024 7:04 PM EST Narrative [facility] - 07/29/2024 11:49 AM EST Vaginal [facility] EDGER MACHINE HELPER LAB MICROBIOLOGY - GENERAL OR DERABLES Final Result [facility] [address] [place] [phone] from Last 3 Months Insurance [facility] [address] C3 Care Teams Strap Folding Machine Operator Relationship Specialty Start Date End Date Codie Barrow FNP [address] [place] [phone] PCP - General Family Medicine 01/24/22
[2024-10-08 14:14] LABS: Basophils Percent Auto 0.3 % (0-2); Eosinophils Percent Auto 0.1 % (0-4); Hematocrit 39.7 % (37.0-47.0); Hemoglobin 12.7 g/dl (12.0-16.0); Imm Gran Abs Auto 0.02 X10*3/uL (0.00-0.03); Imm Gran Pct Auto 0.3 % (0.0-0.4); Lymphocytes Absolute Auto 1.5 X10*3/uL (1.2-4.9); Lymphocytes Percent Auto 22.2 % (20-40); Mean Corpuscular Hemoglobin 26.5 pg (27.0-33.0); Mean Corpuscular Volume 82.7 fL (80.0-98.0); Monocytes Absolute Auto 0.4 X10*3/uL (0.1-1.2); Monocytes Percent Auto 5.7 % (2-11); Neutrophils Absolute Auto 4.8 x10*3/uL (2.0-8.3); Neutrophils Percent Auto 71.4 % (45-73); Platelet Count 183 X10*3/uL (160-400); Red Cell Distribution Width 21.1 % (11.0-16.0); White Blood Count 6.7 X10*3/uL (4.8-10.8)
[2024-10-08 14:37] LABS: Ferritin 23 ng/mL (10-122)
== END 2024-10-08 12:42 | disposition home or self-care (01) ==
LOC: HO.HHCL 12:41
PROVIDERS: Visit Provider Registered Nurse
DX: D50.0 Iron deficiency anemia secondary to blood loss (chronic) (principal)
CPT/HCPCS: 36415; 82728; 85025